=== PATIENT | male | born 2000 | race Caucasian/White ===

== ENCOUNTER 2018-05-22 13:51 | Emergency (ER) | payer BC | END 2018-05-22 14:47 | disposition home or self-care (01) | LOC: MADERS 13:51 | DX: J11.1 Influenza due to unidentified influenza virus with other respiratory manifestations (principal) | CPT/HCPCS: 99282 ==

== ENCOUNTER 2020-06-14 14:38 | Emergency (ER) | payer BC | END 2020-06-14 15:13 | disposition home or self-care (01) | LOC: MADERS 14:38 | DX: J02.9 Acute pharyngitis, unspecified (principal) | CPT/HCPCS: 99282 ==